=== PATIENT | male | born 1980 | race Two or more races ===

== ENCOUNTER 2016-08-10 04:54 | Emergency (ER) | payer SELFPAY ==
[~2016-08-10] VITALS: Ht 167.6 cm; Wt 102.1 kg
[2016-08-10] MEDS ORDERED: METOCLOPRAMIDE HCL 10 MG/2 ML VIAL ONE (05:17)
[2016-08-10] MEDS ORDERED: ASPIRIN 81 MG TAB.CHEW ONE (05:17)
[2016-08-10] MEDS ORDERED: FAMOTIDINE/PF INJ 20 MG/2 ML VIAL IV ONE ×2 (05:18→05:30)
[2016-08-10] MEDS ORDERED: IV SET PRIMARY 1 EA INFUS.SET MC ONE (05:18)
[2016-08-10] MEDS ORDERED: IV NS 0.9% 1,000 ML ONE (05:18)
[2016-08-10 05:28] LABS: BASOPHILS % (AUTO) 0.5 % (0.0-2.0); DIFF TOTAL % 100 %; EOSINOPHILS # (AUTO) 0.9 /CMM (0.0-0.7); EOSINOPHILS % (AUTO) 10.6 % (0.0-6.0); HEMATOCRIT 40 % (39-51); HEMOGLOBIN 13.8 g/dL (13.5-17.5); LYMPHOCYTES # (AUTO) 1.8 /CMM (0.8-4.8); LYMPHOCYTES % (AUTO) 21.8 % (20.0-44.0); MEAN CORPUSCULAR HEMOGLOBIN 30 PG (26.0-33.0); MEAN CORPUSCULAR HGB CONC 34 g/dl (31.0-36.0); MEAN CORPUSCULAR VOLUME 87 fL (80-96); MONOCYTES # (AUTO) 0.6 /CMM (0.1-1.30); MONOCYTES % (AUTO) 7.4 % (2.0-12.0); NEUTROPHILS % (AUTO) 59.7 % (43.0-81.0); PLATELET COUNT (AUTO) 272 /CMM (150-450); RED BLOOD CELL COUNT(AUTO) 4.63 MIL/uL (4.5-6.0); WHITE BLOOD COUNT (AUTO) 8.4 K/uL (4.3-11.0)
[2016-08-10] MEDS ORDERED: METOCLOPRAMIDE HCL 10 MG/2 ML VIAL IV ONE (05:30)
[2016-08-10] MEDS ORDERED: ASPIRIN 81 MG TAB.CHEW PO ONE (05:30)
[2016-08-10] MEDS ORDERED: IV NS 0.9% 1,000 ML BAG IV ONE (05:30)
[2016-08-10 05:38] LABS: ANION GAP 11 (5-14); CALCIUM, SERUM 9.2 mg/dL (8.5-10.1); CARBON DIOXIDE 29 mmol/L (21-32); CHLORIDE 104 mmol/L (98-107); CREATININE 1.1 mg/dL (0.6-1.3); GFR 75 mL/min (>60); GLUCOSE 120 mg/dL (74-106); POTASSIUM 3.9 mmol/L (3.5-5.1); SODIUM SERUM 140 mmol/L (136-145); UREA NITROGEN, BLOOD 18 mg/dL (7-18)
[2016-08-10 05:43] LABS: ALANINE AMINOTRANSFERASE 47 U/L (12-78); ASPARTATE AMINOTRANSFERASE 23 U/L (15-37); BILIRUBIN,DIRECT 0.1 mg/dL (0.0-0.2); BILIRUBIN,TOTAL 0.7 mg/dL (0.2-1.0); INDIRECT BILIRUBIN 0.6 mg/dL (0.0-1.1); TOTAL PROTEIN, SERUM 7.4 g/dL (6.4-8.2)
[2016-08-10 05:45] LABS: TROPONIN I < 0.017 ng/mL (0.00-0.056)
[2016-08-10 08:18] VITALS: BP 126/79
[2016-08-10 08:51] LABS: INR 0.93 (0.87-1.13)
== END 2016-08-10 08:19 | disposition home or self-care (01) ==
LOC: ER 04:56
DX: K21.9 Gastro-esophageal reflux disease without esophagitis (principal); K80.20 Calculus of gallbladder without cholecystitis without obstruction
CPT/HCPCS: 36415; 71010; 76705; 80048; 80076; 83690; 84484; 85025; 85730; 93005; 96361; 96374; 96375; 99285; A4606; J2765; J3490; J7030; Z7610

== ENCOUNTER 2017-08-31 10:25 | Emergency (ER) | payer OTHER ==
[~2017-08-31] VITALS: Ht 167.6 cm; Wt 86.2 kg
[2017-08-31 10:27] VITALS: BP 144/96
== END 2017-08-31 11:00 | disposition home or self-care (01) ==
LOC: ER 10:26
DX: M77.11 Lateral epicondylitis, right elbow (principal)
CPT/HCPCS: 99283; A4606; Z7610

== ENCOUNTER 2017-10-16 17:37 | Emergency (ER) | payer OTHER ==
[~2017-10-16] VITALS: Ht 167.6 cm; Wt 99.8 kg
[2017-10-16 17:40] VITALS: BP 135/70
--- NOTE | 2017-10-16 18:53 | NUR ---
Patient no longer in ER room 3. Patient eloped from facility without being seen. BRIAN Jackson notified.
== END 2017-10-16 18:56 | disposition left against medical advice (07) ==
LOC: ER 17:39
DX: M25.561 Pain in right knee (principal); M79.651 Pain in right thigh; Z53.21 Procedure and treatment not carried out due to patient leaving prior to being seen by health care provider
CPT/HCPCS: A4606; Z7610

== ENCOUNTER 2018-10-06 16:41 | Emergency (ER) | payer OTHER ==
[~2018-10-06] VITALS: Ht 167.6 cm; Wt 97.5 kg
[2018-10-06 17:09] VITALS: BP 111/83
== END 2018-10-06 18:05 | disposition home or self-care (01) ==
LOC: ER 16:41
DX: M79.671 Pain in right foot (principal); J45.909 Unspecified asthma, uncomplicated; F17.200 Nicotine dependence, unspecified, uncomplicated

== ENCOUNTER 2019-03-05 21:52 | Emergency (ER) | payer MEDICAID ==
[~2019-03-05] VITALS: Ht 167.6 cm; Wt 99.8 kg
--- NOTE | 2019-03-05 22:07 | NUR ---
TO BED 1 AMBULATORY C/O SHARP L SIDED CP RADIATING DOWN L ARM X 1 HOUR, DENIES SOB. PT REPORT PAIN WORSEN WHE HE TAKE A DEEP BREATH. PT AAOX4 NO ACUTE DISTRESS NOTED, RESP EVEN AND UNLABORED. PLACE PT ON CARDIAC MONITORING, CONTINUOUS POX. PENDING ER MD BERNABE.
[2019-03-05] MEDS ORDERED: KETOROLAC TROMETHAMINE INJ 60 MG/2 ML VIAL IM ONE ×2 (23:30→23:42)
[2019-03-06 01:14] VITALS: BP 116/65
== END 2019-03-06 01:15 | disposition home or self-care (01) ==
LOC: ER 21:56
DX: R09.1 Pleurisy (principal); J45.909 Unspecified asthma, uncomplicated; F17.200 Nicotine dependence, unspecified, uncomplicated; Z60.2 Problems related to living alone
CPT/HCPCS: 71045-TC; J1885

== ENCOUNTER 2019-04-06 13:47 | Emergency (ER) | payer MEDICAID ==
[~2019-04-06] VITALS: Ht 167.6 cm; Wt 99.8 kg
[2019-04-06 13:57] VITALS: BP 124/70
[2019-04-06] MEDS ORDERED: LIDOCAINE 1%-EPI 1:100,000 20 ML VIAL ONE (14:36)
[2019-04-06] MEDS ORDERED: IBUPROFEN 600 MG TABLET PO ONE ×2 (14:43→15:00)
[2019-04-06] MEDS ORDERED: TDAP [DIPH/PERTUSSIS/TET] 0.5 ML VIAL IM ONE ×2 (14:44→15:00)
[2019-04-06] MEDS ORDERED: LIDOCAINE 2%-EPI 1:100,000 30 ML VIAL TP ONE (15:00)
== END 2019-04-06 15:28 | disposition home or self-care (01) ==
LOC: ER 13:51
DX: S61.411A Laceration without foreign body of right hand, initial encounter (principal); J45.909 Unspecified asthma, uncomplicated; F17.200 Nicotine dependence, unspecified, uncomplicated; Z60.2 Problems related to living alone; W26.8XXA Contact with other sharp object(s), not elsewhere classified, initial encounter; Y93.89 Activity, other specified; Y92.89 Other specified places as the place of occurrence of the external cause; Y99.8 Other external cause status
CPT/HCPCS: 12001; 90471; 90715; 99283; A6403; J3490

== ENCOUNTER 2019-04-13 21:47 | Emergency (ER) | payer MEDICAID ==
[~2019-04-13] VITALS: Ht 167.6 cm; Wt 95.3 kg
[2019-04-13 22:06] VITALS: BP 137/84
== END 2019-04-13 23:14 | disposition home or self-care (01) ==
LOC: ER 21:54
DX: S61.210D Laceration without foreign body of right index finger without damage to nail, subsequent encounter (principal); J45.909 Unspecified asthma, uncomplicated; F17.200 Nicotine dependence, unspecified, uncomplicated; Z60.2 Problems related to living alone; X58.XXXD Exposure to other specified factors, subsequent encounter

== ENCOUNTER 2019-09-09 11:53 | Emergency (ER) | payer MEDICAID ==
[~2019-09-09] VITALS: Ht 167.6 cm; Wt 102.5 kg
[2019-09-09 12:18] VITALS: BP 109/82
== END 2019-09-09 13:33 | disposition home or self-care (01) ==
LOC: ER 11:57
DX: M25.561 Pain in right knee (principal); J45.909 Unspecified asthma, uncomplicated; F17.210 Nicotine dependence, cigarettes, uncomplicated; Z60.2 Problems related to living alone
CPT/HCPCS: 73564-TC

== ENCOUNTER 2020-08-30 12:08 | Emergency (ER) | payer MEDICAID, OTHER ==
[~2020-08-30] VITALS: Ht 170.2 cm; Wt 81.6 kg
--- NOTE | 2020-08-30 12:25 | NUR ---
COUGH AND CONGESTION X 3 DAYS. DENIES ANY FEVER. PATIENT A/OX4, BREATHING EVEN AND UNLABORED, NO SOB NOTED, NEEDS ATTENDED. KEPT COMFORTABLE.
[2020-08-30] MEDS ORDERED: MECLIZINE HCL 25 MG TABLET ONE (12:39)
[2020-08-30] MEDS ORDERED: ASPIRIN 81 MG TAB.CHEW ONE (12:39)
[2020-08-30] MEDS ORDERED: MECLIZINE HCL 12.5 MG TABLET PO ONE (13:00)
[2020-08-30] MEDS ORDERED: ASPIRIN 81 MG TAB.CHEW PO ONE (13:00)
[2020-08-30 13:06] LABS: BASOPHILS # (AUTO) 0.1 /CMM (0.0-0.2); BASOPHILS % (AUTO) 1.3 % (0.0-2.0); EOSINOPHILS % (AUTO) 5.6 % (0.0-6.0); HEMATOCRIT 42 % (39-51); HEMOGLOBIN 14.5 g/dL (13.5-17.5); LYMPHOCYTES # (AUTO) 2.1 /CMM (0.8-4.8); LYMPHOCYTES % (AUTO) 28.1 % (20.0-44.0); MEAN CORPUSCULAR HGB CONC 35 g/dl (31.0-36.0); MEAN CORPUSCULAR VOLUME 88 fL (80-96); MONOCYTES # (AUTO) 0.5 /CMM (0.1-1.30); NEUTROPHILS # (AUTO) 4.2 /CMM (1.8-8.9); PLATELET COUNT (AUTO) 272 /CMM (150-450); WHITE BLOOD COUNT (AUTO) 7.3 K/uL (4.3-11.0)
[2020-08-30 13:16] LABS: CALCIUM, SERUM 9.6 mg/dL (8.5-10.1); CARBON DIOXIDE 29 mmol/L (21-32); CHLORIDE 104 mmol/L (98-107); CREATININE 0.9 mg/dL (0.6-1.3); GLUCOSE 103 mg/dL (74-106); POTASSIUM 3.8 mmol/L (3.5-5.1); SODIUM SERUM 139 mmol/L (136-145); UREA NITROGEN, BLOOD 18 mg/dL (7-18)
[2020-08-30 13:30] LABS: B-TYPE NATRIURETIC PEPTIDE 12 PG/ML (0-125)
[2020-08-30 13:57] VITALS: BP 124/86
== END 2020-08-30 13:57 | disposition home or self-care (01) ==
LOC: ER 12:14
DX: R07.89 Other chest pain (principal); R42 Dizziness and giddiness; J45.909 Unspecified asthma, uncomplicated; F17.200 Nicotine dependence, unspecified, uncomplicated; Z60.2 Problems related to living alone
CPT/HCPCS: 36415; 71045; 80048; 83880; 84484; 85025; 93005; 99285; J8597

== ENCOUNTER 2021-03-23 21:02 | Emergency (ER) | payer OTHER ==
[~2021-03-23] VITALS: Ht 167.6 cm; Wt 90.7 kg
[2021-03-23 21:11] VITALS: BP 141/80
[2021-03-23] MEDS ORDERED: OLOP2.5D12 EACHEYE ×2 (21:46→21:51)
[2021-03-23] MEDS ORDERED: LORA10TA68 PO ×2 (21:46→21:51)
[2021-03-23] MEDS ORDERED: POLY10DR OP (22:13)
== END 2021-03-23 22:20 | disposition home or self-care (01) ==
LOC: ER 21:04
DX: H10.11 Acute atopic conjunctivitis, right eye (principal); J45.909 Unspecified asthma, uncomplicated; F17.200 Nicotine dependence, unspecified, uncomplicated; Z60.2 Problems related to living alone; Z79.899 Other long term (current) drug therapy

== ENCOUNTER 2021-06-02 11:47 | Emergency (ER) | payer MEDICAID, OTHER ==
[~2021-06-02] VITALS: Ht 167.6 cm; Wt 104.3 kg
[~2021-06-02 11:47] MED LIST: LORA10TA68 PO; OLOP2.5D12 EACHEYE; POLY10DR OP
[2021-06-02 12:00] VITALS: BP 125/64
--- NOTE | 2021-06-02 12:05 | NUR ---
DR PERAZA AT BEDSIDE
[2021-06-02] MEDS ORDERED: MECL-159 PO (12:09)
--- NOTE | 2021-06-02 12:15 | NUR ---
Patient discharged to home in stable condition. Written and verbal after care instructions given. Patient verbalizes understanding of instruction.
== END 2021-06-02 12:15 | disposition home or self-care (01) ==
LOC: ER 11:50
DX: R42 Dizziness and giddiness (principal); J45.909 Unspecified asthma, uncomplicated; F17.200 Nicotine dependence, unspecified, uncomplicated; Z60.2 Problems related to living alone; Z79.899 Other long term (current) drug therapy

== ENCOUNTER 2023-08-04 13:31 | Emergency (ER) | payer SELFPAY ==
[~2023-08-04] VITALS: Ht 167.6 cm; Wt 104.3 kg
[~2023-08-04 13:31] MED LIST changes: +MECL-159 PO
[2023-08-04 15:12] LABS: BASOPHILS % (AUTO) 0.6 % (0.0-2.0); EOSINOPHILS # (AUTO) 0.4 K/uL (0.0-0.7); EOSINOPHILS % (AUTO) 5.5 % (0.0-6.0); HEMATOCRIT 42 % (39-51); HEMOGLOBIN 14.5 g/dL (13.5-17.5); LYMPHOCYTES # (AUTO) 2.2 K/uL (0.8-4.8); LYMPHOCYTES % (AUTO) 29.6 % (20.0-44.0); MEAN CORPUSCULAR HEMOGLOBIN 30 PG (26.0-33.0); MEAN CORPUSCULAR HGB CONC 34 g/dl (31.0-36.0); MEAN CORPUSCULAR VOLUME 89 fL (80-96); MONOCYTES # (AUTO) 0.5 K/uL (0.1-1.30); NEUTROPHILS # (AUTO) 4.4 K/uL (1.8-8.9); NEUTROPHILS % (AUTO) 58.3 % (43.0-81.0); PLATELET COUNT (AUTO) 285 K/uL (150-450); RED BLOOD CELL COUNT(AUTO) 4.77 MIL/uL (4.5-6.0); RED CELL DISTRIBUTION WIDTH 13.7 % (11.5-15.0); WHITE BLOOD COUNT (AUTO) 7.5 K/uL (4.3-11.0)
[2023-08-04 15:50] LABS: CALCIUM, SERUM 9.4 mg/dL (8.5-10.1); CARBON DIOXIDE 28 mmol/L (21-32); CHLORIDE 100 mmol/L (98-107); CREATININE 0.9 mg/dL (0.6-1.3); GLUCOSE 92 mg/dL (74-106); POTASSIUM 3.7 mmol/L (3.5-5.1); SODIUM SERUM 137 mmol/L (136-145); UREA NITROGEN, BLOOD 15 mg/dL (7-18)
[2023-08-04 16:02] LABS: ALANINE AMINOTRANSFERASE 46 U/L (12-78); ALKALINE PHOSPHATASE 56 U/L (46-116); ASPARTATE AMINOTRANSFERASE 21 U/L (15-37); BILIRUBIN,DIRECT 0.1 mg/dL (0.0-0.2); BILIRUBIN,TOTAL 1.1 mg/dL (0.2-1.0); NT-PRO BNP 14 pg/mL (0-125); TOTAL PROTEIN, SERUM 8.1 g/dL (6.4-8.2)
[2023-08-04 17:05] VITALS: BP 124/71; TEMP 98.7; O2SAT 100
== END 2023-08-04 16:45 | disposition home or self-care (01) ==
LOC: ER 13:33
DX: R06.02 Shortness of breath (principal); J45.909 Unspecified asthma, uncomplicated; F17.200 Nicotine dependence, unspecified, uncomplicated; Z79.899 Other long term (current) drug therapy; Z60.2 Problems related to living alone
CPT/HCPCS: 36415; 71045-TC; 80048-TC; 80076-TC; 83880; 84484-TC; 85025-TC

== ENCOUNTER 2023-10-22 09:11 | Emergency (ER) | payer MEDICAID ==
[~2023-10-22] VITALS: Ht 167.6 cm; Wt 99.8 kg
[2023-10-22] MEDS ORDERED: IBUP-1955 PO (10:10)
[2023-10-22 10:15] VITALS: BP 138/89; TEMP 98.4; O2SAT 98
== END 2023-10-22 10:17 | disposition home or self-care (01) ==
LOC: ER 09:13
DX: M79.671 Pain in right foot (principal); F17.200 Nicotine dependence, unspecified, uncomplicated

== ENCOUNTER 2023-10-22 20:17 | Emergency (ER) | payer MEDICAID ==
[~2023-10-22] VITALS: Ht 167.6 cm; Wt 99.8 kg
[~2023-10-22 20:17] MED LIST changes: +IBUP-1955 PO
[2023-10-22 21:08] VITALS: BP 132/97; TEMP 98.8; O2SAT 95
[2023-10-22] MEDS ORDERED: KETOROLAC TROMETHAMINE 15 MG/ML VIAL ONE (22:11)
[2023-10-22] MEDS: KETOROLAC TROMETHAMINE 15 MG/ML VIAL IM ONE (22:15)
== END 2023-10-22 23:12 | disposition home or self-care (01) ==
LOC: ER 20:19
DX: M79.672 Pain in left foot (principal); J45.909 Unspecified asthma, uncomplicated; F17.200 Nicotine dependence, unspecified, uncomplicated
CPT/HCPCS: 99283; 96372; 73630; J1885